=== PATIENT | female | born 1965 | race Caucasian/White ===

== ENCOUNTER 2023-05-18 03:07 | Inpatient (IN) | payer MEDICARE, OTHER ==
[2023-05-18] VITALS (7 sets, daily range): BP systolic 99–106; BP diastolic 54–67; TEMP 97.3–98.4; O2SAT 95–99
[~2023-05-18] VITALS: Ht 154.9 cm; Wt 115.2 kg
[2023-05-18 04:04] LABS: BASOPHILS # (AUTO) 0.1 K/uL (0.0-0.2); BASOPHILS % (AUTO) 0.8 % (0.0-2.0); EOSINOPHILS % (AUTO) 3.4 % (0.0-6.0); HEMATOCRIT 36 % (33-45); HEMOGLOBIN 11.7 g/dL (11.5-14.8); LYMPHOCYTES # (AUTO) 2.3 K/uL (0.8-4.8); LYMPHOCYTES % (AUTO) 33.1 % (20.0-44.0); MEAN CORPUSCULAR HGB CONC 33 g/dl (31.0-36.0); MEAN CORPUSCULAR VOLUME 91 fL (82-100); MONOCYTES # (AUTO) 0.6 K/uL (0.1-1.30); MONOCYTES % (AUTO) 8.8 % (2.0-12.0); NEUTROPHILS # (AUTO) 3.8 K/uL (1.8-8.9); NEUTROPHILS % (AUTO) 53.9 % (43.0-81.0); PLATELET COUNT (AUTO) 277 K/uL (150-450); RED BLOOD CELL COUNT(AUTO) 3.92 MIL/uL (4.0-5.2)
[2023-05-18 04:16] LABS: CALCIUM, SERUM 9.1 mg/dL (8.5-10.1); CARBON DIOXIDE 26 mmol/L (21-32); CHLORIDE 107 mmol/L (98-107); CREATININE 0.7 mg/dL (0.6-1.3); GLUCOSE 131 mg/dL (74-106); SODIUM SERUM 143 mmol/L (136-145); UREA NITROGEN, BLOOD 34 mg/dL (7-18)
--- NOTE | 2023-05-18 04:19 | NUR ---
WOOD AND HARDWARE OUTFITTER AT PT'S BEDSIDE
[2023-05-18 04:25] LABS: ALANINE AMINOTRANSFERASE 35 U/L (12-78); ALBUMIN 3.3 g/dL (3.4-5.0); ALKALINE PHOSPHATASE 118 U/L (46-116); ASPARTATE AMINOTRANSFERASE 25 U/L (15-37); BILIRUBIN,DIRECT 0.1 mg/dL (0.0-0.2); BILIRUBIN,TOTAL 0.5 mg/dL (0.2-1.0); TOTAL PROTEIN, SERUM 7.4 g/dL (6.4-8.2)
--- NOTE | 2023-05-18 04:58 | NUR ---
CALLED RT FOR BREATHING TX
[2023-05-18] MEDS ORDERED: ALBUTEROL FS 2.5 MG/3 ML VIAL.NEB NEB ONE (05:00)
[2023-05-18] MEDS ORDERED: IPRATROPIUM NEB FS 0.5 MG/2.5 ML AMPUL.NEB NEB ONE (05:00)
[2023-05-18] MEDS ORDERED: IPRATROPIUM NEB FS 0.5 MG/2.5 ML AMPUL.NEB ONE (05:13)
[2023-05-18] MEDS ORDERED: ALBUTEROL FS 2.5 MG/3 ML VIAL.NEB ONE (05:13)
[2023-05-18] MEDS ORDERED: FUROSEMIDE 40 MG/4 ML VIAL IV ONE (05:30)
[2023-05-18] MEDS ORDERED: FUROSEMIDE 40 MG/4 ML VIAL ONE (06:17)
[2023-05-18 07:13] LABS: ABG OXYGEN SATURATION 97.1 % (92.0-98.5); ABG PCO2 30.3 mmHg (35.0-45.0); ABG PO2 98.8 mmHg (75.0-100.0); COHb 0.3 % (0.5-1.5); MetHb 0.3 % (0.0-1.5); O2Hb 96.5 % (94.0-97.0); SITE, ABG Left Radial; VENT MODE, BG 6 LPM SM
--- NOTE | 2023-05-18 09:54 | NUR ---
MOVE SHEET SUBMITTED.
--- NOTE | 2023-05-18 09:58 | NUR ---
VALENTIN COLLECTED AND SENT
--- NOTE | 2023-05-18 10:23 | NUR ---
REPORT GIVEN TO INOCENCIA FOR NADEGE
[2023-05-18] MEDS ORDERED: MAGNESIUM HYDROXIDE 30 ML UDC PO PRN (11:00)
[2023-05-18] MEDS ORDERED: ONDANSETRON HCL/PF 4 MG/2 ML VIAL IVP PRN (11:00)
[2023-05-18] MEDS ORDERED: ENOXAPARIN SODIUM 40 MG/0.4 ML DISP.SYRIN SQ SCH ×2 (11:00→13:00)
[2023-05-18] MEDS ORDERED: Z GUARD REMEDY 4 OZ OINT TP PRN (11:00)
[2023-05-18] MEDS ORDERED: *INSULIN REGULAR(HUMULIN R)HUM 100 UNIT/ML VIAL SQ PRN (11:00)
[2023-05-18] MEDS ORDERED: DEXTROSE 50%-WATER 50 ML DISP.SYRIN IV PRN (11:00)
[2023-05-18] MEDS ORDERED: HYDROCODONE/APAP 5/325MG TABLET PO PRN (11:00)
[2023-05-18] MEDS ORDERED: MAG HYDROX/AL HYDROX/SIMETH 30 ML UDC PO PRN (11:00)
[2023-05-18] MEDS ORDERED: ALBUTEROL FS 2.5 MG/0.5 ML VIAL.NEB NEB PRN (11:00)
[2023-05-18] MEDS ORDERED: ACETAMINOPHEN 325 MG TABLET PO PRN (11:00)
[2023-05-18] MEDS ORDERED: ZOLPIDEM TARTRATE 5 MG TABLET PO PRN (11:00)
--- NOTE | 2023-05-18 11:41 | NUR ---
TAKEN TO ASSIGNED ROOM SAFELY PER ACLS PROTOCOL.
--- NOTE | 2023-05-18 11:43 | NUR ---
VP OF TECHNOLOGYCAR REPOSSESSOR NOTE PT ALERT AND ORIENTED X4, SAMOAN SPEAKING.ON TELE MONITOR READING SINUS RHYTHM. NO COMPLAINTS OF PAIN/DISCOMFORT NOTED AT THIS TIME. ON 2L NASAL CANNULA TOLERATING ABOVE 92%. PT HAS LEFT HAND 20 GUAGE, IV INTACT, PATENT AND FLUSHING WELL. ALL SAFETY MEASURES IN PLACE. BED LOCKED IN LOWEST POSITION. SIDE RAILS UP X2.BED ALARM ON
[2023-05-18] MEDS ORDERED: predniSONE 20 MG TABLET PO ONE (12:00)
[2023-05-18] MEDS ORDERED: predniSONE 10 MG TABLET PO ONE (12:00)
[2023-05-18] MEDS: BLOOD SUGAR DIAGNOSTIC 1 EACH STRIP VI SCH ×3 (12:12→22:12)
[2023-05-18 14:24] LABS: THYROID STIMULATING HORMONE 3.709 uIU/mL (0.358-3.74)
[2023-05-18] MEDS: INSULIN REGULAR, HUMAN 100 UNIT/ML 3 ML VIAL SQ PRN (17:36)
--- NOTE | 2023-05-18 19:03 | NUR ---
RN NOTE NOTIFIED THAT PT IS HAVING 7/10 PAIN IN BACK AND LEGS, PT SAYS TYLENOL AND NORCO DOES NOT HELP DUE TO PAIN IN STOMACH AFTER TAKING IT.PT TAKES IBUPROFEN AT HOME. ORDERED IBUPROFEN 600 MG Q6 PRN.ORDER NOTED AND WILL ENDORSE TO WHEEL BLOCKER RN
--- NOTE | 2023-05-18 19:26 | NUR ---
MS RN CLOSING NOTE PT ALERT AND ORIENTED X4, SLOVAK SPEAKING.ON TELE MONITOR READING SINUS TACHYCARDIA. . NO COMPLAINTS OF PAIN/DISCOMFORT NOTED AT THIS TIME. ON ROOM AIR TOLERATING AT 94% AT THIS TIME. PT HAS LEFT HAND 20 GUAGE, IV INTACT, PATENT AND FLUSHING WELL. ALL SAFETY MEASURES IN PLACE. BED LOCKED IN LOWEST POSITION. SIDE RAILS UP X2.BED ALARM ON.ENDORSED TO MECHANICAL INTEGRITY ENGINEER RN FOR CONTUITY OF CARE
[2023-05-18] MEDS ORDERED: IBUPROFEN 200 MG TABLET PO PRN (19:30)
--- NOTE | 2023-05-18 19:30 | NUR ---
noc rn opening note received patient in the chair a/ox4. no s/s of apparent distress in room air. c/o pain in her legs and back. patient reading sr at this time on tele monitor. 2 daughters at bed side. patient has a left hand #20g IV access on saline lock. safety in place-- bed in lowest, locked position, side rails up X2,will continue with patient's plan of care.
--- NOTE | 2023-05-18 20:10 | NUR ---
NOC RN NOTE- PRN ADMINISTRATION PATIENT C/O PAIN, IN HER BACK AND LEGS. GIVEN MOTRIN 600MG ORDERED PRN. WILL CONTINUE TO MONITOR.
--- NOTE | 2023-05-18 22:08 | NUR ---
NOC RN NOTE- PRN ADMINISTRATION PATIENT REQUEST FOR SLEEPING MEDICATION GIVEN AMBIEN 5MG ORDERED PRN FOR SLEEP. WILL RE-ASSESS.
[2023-05-19 01:00] VITALS: BP 113/46; O2SAT 94
[2023-05-19 05:00] VITALS: BP 97/63; TEMP 97.4; O2SAT 95
[2023-05-19 06:36] LABS: BASOPHILS % (AUTO) 0.1 % (0.0-2.0); EOSINOPHILS % (AUTO) 0.1 % (0.0-6.0); HEMATOCRIT 33 % (33-45); HEMOGLOBIN 11.2 g/dL (11.5-14.8); LYMPHOCYTES # (AUTO) 1.3 K/uL (0.8-4.8); LYMPHOCYTES % (AUTO) 18.2 % (20.0-44.0); MEAN CORPUSCULAR HGB CONC 34 g/dl (31.0-36.0); MEAN CORPUSCULAR VOLUME 91 fL (82-100); MONOCYTES # (AUTO) 0.7 K/uL (0.1-1.30); MONOCYTES % (AUTO) 9.7 % (2.0-12.0); NEUTROPHILS # (AUTO) 5.3 K/uL (1.8-8.9); NEUTROPHILS % (AUTO) 71.9 % (43.0-81.0); PLATELET COUNT (AUTO) 259 K/uL (150-450); RED BLOOD CELL COUNT(AUTO) 3.65 MIL/uL (4.0-5.2); WHITE BLOOD COUNT (AUTO) 7.4 K/uL (4.3-11.0)
[2023-05-19 07:25] LABS: CALCIUM, SERUM 9.2 mg/dL (8.5-10.1); CREATININE 0.4 mg/dL (0.6-1.3); MAGNESIUM 2.1 mg/dL (1.8-2.4); PHOSPHORUS 3.8 mg/dL (2.5-4.9); POTASSIUM 3.6 mmol/L (3.5-5.1)
[2023-05-19] MEDS: BLOOD SUGAR DIAGNOSTIC 1 EACH STRIP VI SCH (07:28)
[2023-05-19] MEDS: INSULIN REGULAR, HUMAN 100 UNIT/ML 3 ML VIAL SQ PRN (07:29)
--- NOTE | 2023-05-19 07:44 | NUR ---
noc rn closing note all needs attended. Report given to ISAI Cotter for continuity of patient care.
[2023-05-19 09:00] VITALS: BP 95/52; TEMP 98.5
[2023-05-19] MEDS ORDERED: FUROSEMIDE 40 MG/4 ML VIAL IV SCH (09:00)
[2023-05-19] MEDS ORDERED: AMLO5TAB4 PO (09:33)
[2023-05-19] MEDS ORDERED: INSU100I30 SQ (09:33)
[2023-05-19] MEDS ORDERED: CROMOLYN EACHEYE (09:33)
[2023-05-19] MEDS ORDERED: METH500T6 PO (09:33)
[2023-05-19] MEDS ORDERED: HYDR50TA61 PO (09:33)
[2023-05-19] MEDS ORDERED: OMEP20CA15 PO (09:33)
[2023-05-19] MEDS ORDERED: SERT50TA PO (09:33)
[2023-05-19] MEDS ORDERED: PIOG45TA5 PO (09:33)
[2023-05-19] MEDS ORDERED: IBUP-1957 PO (09:33)
[2023-05-19] MEDS ORDERED: EZET10TA16 PO (09:33)
[2023-05-19] MEDS ORDERED: ROSU40TA PO (09:33)
[2023-05-19] MEDS ORDERED: GABA-536 PO (09:33)
[2023-05-19] MEDS ORDERED: GLIP10TA11 PO (09:33)
[2023-05-19] MEDS ORDERED: LEVO25TA2 PO (09:33)
[2023-05-19] MEDS ORDERED: VOLTAREN GEL TP (09:33)
[2023-05-19] MEDS ORDERED: METF-442 PO (09:33)
[2023-05-19] MEDS ORDERED: FURO-144 PO (09:33)
[2023-05-19] MEDS ORDERED: ALBUTEROL SULFATE INH (09:33)
[2023-05-19] MEDS ORDERED: BLOO-668 IN (09:33)
[2023-05-19] MEDS ORDERED: CETI-90 PO (09:33)
[2023-05-19] MEDS ORDERED: CHOL500062 PO (09:33)
[2023-05-19] MEDS ORDERED: SEMA1PEN SQ (09:45)
[2023-05-19] MEDS ORDERED: PRED20TA PO (10:11)
--- NOTE | 2023-05-19 11:15 | NUR ---
Discharge Note: Patient discharged to home via private auto with family. No s/s of discomfort or distress. IV removed from left hand, tolerated well. child monitor removed. Reviewed discharged/follow up instructions with patient. Verbalized understanding. All belongings sent with the patient.
== END 2023-05-19 14:48 | disposition home or self-care (01) | DRG 291 ==
LOC: ER 03:10 → TELE1 10:18
PROVIDERS: ADMIT Internal Medicine; ATTEND Internal Medicine
DX: I11.0 Hypertensive heart disease with heart failure (principal); I50.23 Acute on chronic systolic (congestive) heart failure; J96.21 Acute and chronic respiratory failure with hypoxia; J45.901 Unspecified asthma with (acute) exacerbation; E66.2 Morbid (severe) obesity with alveolar hypoventilation; Z68.42 Body mass index [BMI] 45.0-49.9, adult; E03.9 Hypothyroidism, unspecified; E11.9 Type 2 diabetes mellitus without complications; I25.2 Old myocardial infarction; Z20.822 Contact with and (suspected) exposure to COVID-19; Z79.4 Long term (current) use of insulin; Z79.84 Long term (current) use of oral hypoglycemic drugs
CPT/HCPCS: 36415; 36600; 71045-TC; 80048-TC; 80061-TC; 80076-TC; 82728-TC; 82803-TC; 82962-TC; 83735-TC; 83880; 84100-TC; 84439-TC; 84443-TC; 84484-TC; 85025-TC; 93307-TC; 94799-TC; G0378; J1650; J1815; J1940